=== PATIENT | female | born 1980 | race Two or more races ===

== ENCOUNTER → 2024-09-10 | Outpatient (CLI) | payer MEDICAID, SELFPAY ==
--- NOTE | 2024-09-10 14:00 | XR_ITS ---
Examination: Screening digital mammography, bilateral Computer aided detection 3-D breast Tomosynthesis, bilateral Date and time of exam: September 10, 2024 1441 hours No priors Indication: Screening Technique: Nonmagnified MLO, CC views of the breasts to been obtained, reconstructed from 3-D Tomosynthesis images. R2 computer aided detection program utilized for evaluation of suspicious masses and/or abnormal calcifications. 3-D Tomosynthesis images obtained. Findings: Scattered areas of fibroglandular density. 8 mm circumscribed nodule upper right breast in the axillary region which may represent an intramammary lymph node Benign calcifications Impression: BI-RADS Category 0: Incomplete: Need additional imaging evaluation Recommend right breast sonography follow-up to confirm benign intramammary right axillary lymph node
== END | disposition home or self-care (01) ==
DX: Z12.31 Encounter for screening mammogram for malignant neoplasm of breast (principal); R92.8 Other abnormal and inconclusive findings on diagnostic imaging of breast
CPT/HCPCS: 77063; 77067

== ENCOUNTER → 2024-11-19 | Outpatient (CLI) | payer MEDICAID, SELFPAY ==
--- NOTE | 2024-11-19 09:45 | XR_ITS ---
EXAMINATION: Right breast sonography complete TECHNIQUE: Grayscale sonographic images right breast including retroareolar and axillary regions Date and time: November 19, 2024, 10:40 a.m. INDICATIONS: Mammogram September 10, 2024 follow-up intramammary right axillary lymph nodes FINDINGS: Probably benign intramammary axillary lymph nodes, 29 x 18 mm and 14 x 12 mm IMPRESSION: BI-RADS Category 3: Probably benign findings 1 additional 6-month right breast sonogram follow-up is needed to document stability of axillary lymph nodes described above
== END | disposition home or self-care (01) ==
PROVIDERS: PCP Nurse Practitioner; Referring Provider Nurse Practitioner; Visit Provider Nurse Practitioner
DX: R92.8 Other abnormal and inconclusive findings on diagnostic imaging of breast (principal)
CPT/HCPCS: 76641

== ENCOUNTER → 2025-01-16 | Outpatient (CLI) | payer MEDICAID, SELFPAY ==
--- NOTE | 2025-01-16 10:38 | XR_ITS ---
Radiographs of the dorsal spine on 01/16/2025 at 11:09 a.m. INDICATION: Back pain and pain radiating to both hands for 1 year no trauma FINDINGS: The visible portion of both lungs and pleural space are clear normal. There is exceedingly minor is significant S-shaped scoliosis of the upper half of the dorsal spine. This is barely detectable. There is some very mild disc space narrowing noted at T4-5, T5-6, T7-8 and T8-9 and T9-10. There are very tiny degenerative osteophytes along the right lateral margin of the spine at numerous levels No other abnormalities are noted IMPRESSION: 1. No significant abnormalities are seen in the dorsal spine for the patient's age. 2. 2 there are multiple levels where there is very minor degenerative disc space narrowing identified. Very small degenerative osteophytes are also noted surrounding many of the disc spaces.
--- NOTE | 2025-01-16 10:38 | XR_ITS ---
Examination: Lumbar spine, 5 views Technique: Lumbar spine AP, lateral, coned lateral lower lumbar spine, bilateral obliques 5 views Exam date and time: 01/16/2025 at 11:13 a.m. Clinical indication: Back pain and bilateral lower extremity pain for 1 year Findings no abnormalities are seen in the retroperitoneal structures. There is very minimal insignificant degenerative disc space narrowing and small surrounding osteophytes at T11-12 in the lower dorsal spine There is very minor disc space narrowing at L5-S1. 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 There are some mild degenerative changes seen at L4-5 and L5-S1, please see above discussion. In general the films are reasonably normal given the patient's age
== END | disposition home or self-care (01) ==
LOC: CDIM 10:29
PROVIDERS: PCP Physician Assistant; Referring Provider Physician Assistant; Visit Provider Physician Assistant
DX: M51.34 Other intervertebral disc degeneration, thoracic region (principal); M25.78 Osteophyte, vertebrae; M48.04 Spinal stenosis, thoracic region
CPT/HCPCS: 72072; 72110